=== PATIENT | male | born 1980 | race Caucasian/White ===

== ENCOUNTER 2021-12-20 12:10 | Emergency (ER) | payer BC ==
[~2021-12-20] VITALS: Ht 185.4 cm; Wt 136.4 kg
[2021-12-20 12:39] VITALS: BP 135/88
[2021-12-20] MEDS ORDERED: dexamethasone sod phosphate 10mg/ml inj IM STA (13:01)
[2021-12-20] MEDS ORDERED: CIPR7.5D RIGHT EAR (13:07)
[2021-12-20] MEDS ORDERED: HYDR-3965 PO (13:07)
[2021-12-20] MEDS ORDERED: NAPR-56 PO (13:07)
[2021-12-20] MEDS ORDERED: LEVO-65 PO (13:07)
== END 2021-12-20 13:29 | disposition home or self-care (01) ==
LOC: ER 12:10
DX: H66.92 Otitis media, unspecified, left ear (principal); H92.02 Otalgia, left ear; R50.9 Fever, unspecified; Z79.2 Long term (current) use of antibiotics; Z79.899 Other long term (current) drug therapy
CPT/HCPCS: 96372; 99283; J1100

== ENCOUNTER 2022-05-01 08:54 | Outpatient (CLI) | payer BC ==
[~2022-05-01 08:54] MED LIST: CIPR7.5D RIGHT EAR
[2022-05-01 09:31] LABS: BASOPHILS # (AUTO) 0.1 X10'3 (0-0.2); BASOPHILS % (AUTO) 0.8 % (0-1); EOSINOPHILS # (AUTO) 0.3 X10'3 (0-0.9); EOSINOPHILS % (AUTO) 2.5 % (0-6); HEMATOCRIT 44.5 % (42.0-52.0); HEMOGLOBIN 15.3 g/dl (14.0-17.9); LYMPHOCYTES # (AUTO) 2.7 X10'3 (1.1-4.8); LYMPHOCYTES % (AUTO) 27.3 % (21-51); MEAN CORPUSCULAR HEMOGLOBIN 27.9 PG (27.0-31.0); MEAN CORPUSCULAR HGB CONC 34.5 g/dL (33.0-36.5); MEAN CORPUSCULAR VOLUME 80.9 FL (78-98); MEAN PLATELET VOLUME 8.3 FL (7.4-10.4); MONOCYTES # (AUTO) 0.7 X10'3 (0-0.9); MONOCYTES % (AUTO) 7.1 % (2-12); NEUTROPHILS # (AUTO) 6.3 X10'3 (1.8-7.7); NEUTROPHILS % (AUTO) 62.3 % (42-75); PLATELET COUNT 237 X10'3 (140-440); RED CELL DISTRIBUTION WIDTH 13.4 % (11.5-14.5); WHITE BLOOD COUNT 10.1 X10'3 (4.5-11.0)
[2022-05-01 09:56] LABS: HEMOGLOBIN A1C 5.9 % (4.5-6.2)
[2022-05-01 10:08] LABS: ALANINE AMINOTRANSFERASE 78 U/L (12-78); ALBUMIN 3.9 G/DL (3.4-5.0); ALBUMIN/GLOBULIN RATIO 1.1 (1.1-1.5); ALKALINE PHOSPHATASE 75 IU/L (46-116); ANION GAP 9 (8-16); ASPARTATE AMINO TRANSFERASE 44 U/L (10-37); BILIRUBIN,TOTAL 0.3 MG/DL (0.1-1.0); BLOOD UREA NITROGEN 17 MG/DL (7-18); BUN/CREATININE RATIO 19.5 (5.4-32.0); CALCIUM 9.3 MG/DL (8.5-10.1); CHLORIDE 105 MMOL/L (99-107); CHOLESTEROL 149 MG/DL (0-200); CREATININE 0.87 MG/DL (0.60-1.10); GLUCOSE 103 MG/DL (70-104); HDL CHOLESTEROL 49 MG/DL (35-60); LDL CHOLESTEROL 91 MG/DL (50-100); SODIUM 138 MMOL/L (135-145); TOTAL CARBON DIOXIDE 24.2 MMOL/L (24-32); TOTAL PROTEIN 7.4 G/DL (6.4-8.2); TRIGLYCERIDES 87 MG/DL (20-135); eGFR > 90 ML/MIN
[2022-05-02 11:17] LABS: INSULIN 34.6 uIU/mL (2.6-24.9); THIIODOTHRONINE, FREE, SERUM 3.7 pg/mL (2.0-4.4); THYROID PEROXIDASE AB <9 IU/mL (0-34)
== END 2022-05-01 23:59 | disposition home or self-care (01) ==
LOC: LAB 08:54
PROVIDERS: ATTEND Nurse Practitioner Primary Care
DX: E11.9 Type 2 diabetes mellitus without complications (principal); E06.9 Thyroiditis, unspecified; R68.89 Other general symptoms and signs; R79.89 Other specified abnormal findings of blood chemistry; E78.5 Hyperlipidemia, unspecified; R86.1 Abnormal level of hormones in specimens from male genital organs
CPT/HCPCS: 36415; 80053; 80061; 83036; 83525; 84402; 84403; 84439; 84443; 84481; 85025; 86376

== ENCOUNTER 2022-06-08 10:22 | Emergency (ER) | payer OTHER ==
[~2022-06-08] VITALS: Ht 185.4 cm; Wt 143.2 kg
[2022-06-08 10:33] VITALS: BP 139/86
== END 2022-06-08 10:58 | disposition home or self-care (01) ==
LOC: ER 10:22
DX: S61.201A Unspecified open wound of left index finger without damage to nail, initial encounter (principal); W46.0XXA Contact with hypodermic needle, initial encounter; Y93.89 Activity, other specified; Y92.89 Other specified places as the place of occurrence of the external cause; Y99.8 Other external cause status
CPT/HCPCS: 99281

== ENCOUNTER 2024-01-03 07:14 | Outpatient (CLI) | payer BC, OTHER ==
[2024-01-03 07:40] LABS: BILIRUBIN,URINE NEGATIVE (Neg); CLARITY,URINE CLEAR (Clear); COLOR,URINE YELLOW (Yellow); GLUCOSE, URINE NEGATIVE (Neg); KETONES,URINE NEGATIVE (Neg); LEUKOCYTE ESTERASE ,URINE NEGATIVE (Neg); NITRITES, URINE NEGATIVE (Neg); OCCULT BLOOD,URINE TRACE-INTACT (Neg); PROTEIN,URINE NEGATIVE (Neg); UROBILINOGEN,URINE 0.2 E.U/dL (0.2-1.0)
[2024-01-03 07:47] LABS: BASOPHILS # (AUTO) 0.1 X10'3 (0-0.2); BASOPHILS % (AUTO) 0.9 % (0-1); EOSINOPHILS # (AUTO) 0.3 X10'3 (0-0.9); HEMATOCRIT 45.8 % (42.0-52.0); HEMOGLOBIN 15.8 g/dl (14.0-17.9); LYMPHOCYTES # (AUTO) 2.3 X10'3 (1.1-4.8); LYMPHOCYTES % (AUTO) 23.5 % (21-51); MEAN CORPUSCULAR HEMOGLOBIN 28.5 PG (27.0-31.0); MEAN CORPUSCULAR HGB CONC 34.4 g/dL (33.0-36.5); MEAN CORPUSCULAR VOLUME 82.8 FL (78-98); MEAN PLATELET VOLUME 8.5 FL (7.4-10.4); MONOCYTES # (AUTO) 0.8 X10'3 (0-0.9); MONOCYTES % (AUTO) 7.8 % (2-12); NEUTROPHILS # (AUTO) 6.4 X10'3 (1.8-7.7); NEUTROPHILS % (AUTO) 64.8 % (42-75); PLATELET COUNT 243 X10'3 (140-440); RED BLOOD COUNT 5.54 X10'6 (4.70-6.10); RED CELL DISTRIBUTION WIDTH 13.4 % (11.5-14.5); UA COLLECTION TYPE VOIDED; WHITE BLOOD COUNT 9.9 X10'3 (4.5-11.0)
[2024-01-03 07:49] LABS: BACTERIA,URINE NONE SEEN /HPF (Neg); WBC,URINE NONE SEEN /HPF (0-4)
[2024-01-03 07:50] LABS: MUCUS STRANDS NONE SEEN /LPF (Neg); SQUAMOUS EPITHELIAL CELL,UR FEW /LPF (FEW)
[2024-01-03 08:19] LABS: HEMOGLOBIN A1C 5.6 % (4.5-6.2)
[2024-01-03 08:21] LABS: ALANINE AMINOTRANSFERASE 45 U/L (12-78); ALBUMIN 3.8 G/DL (3.4-5.0); ALBUMIN/GLOBULIN RATIO 1.1 (1.1-1.5); ALKALINE PHOSPHATASE 63 IU/L (46-116); ANION GAP 10 (8-16); ASPARTATE AMINO TRANSFERASE 23 U/L (10-37); BILIRUBIN,TOTAL 0.4 MG/DL (0.1-1.0); BLOOD UREA NITROGEN 18 MG/DL (7-18); BUN/CREATININE RATIO 17.6 (10.0-20.0); CALCIUM 8.9 MG/DL (8.5-10.1); CHLORIDE 105 MMOL/L (99-107); CREATININE 1.02 MG/DL (0.60-1.10); GLUCOSE 99 MG/DL (70-104); POTASSIUM 4.1 MMOL/L (3.5-5.1); SODIUM 140 MMOL/L (135-145); THYROID STIMULATING HORMONE 2.94 ulU/ml (0.34-4.50); TOTAL CARBON DIOXIDE 25.3 MMOL/L (24-32); TOTAL PROTEIN 7.4 G/DL (6.4-8.2); eGFR 80 ML/MIN
[2024-01-04 08:15] LABS: ESTRADIOL 25.3 pg/mL (7.6-42.6); FSH, SERUM 1.8 mIU/mL (1.5-12.4); LUTEINIZING HORMONE 3.3 mIU/mL (1.7-8.6); TESTOSTERONE, SERUM 200 ng/dL (264-916); THYROXINE (T4) 7.3 ug/dL (4.5-12.0)
== END 2024-01-03 23:59 | disposition home or self-care (01) ==
LOC: RAD 07:14
PROVIDERS: ATTEND Nurse Practitioner Family
DX: Z00.01 Encounter for general adult medical examination with abnormal findings (principal); R61 Generalized hyperhidrosis; F52.0 Hypoactive sexual desire disorder; F33.9 Major depressive disorder, recurrent, unspecified
CPT/HCPCS: 36415; 80053; 81001; 82670; 83001; 83002; 83036; 84402; 84403; 84436; 84443; 85025

== ENCOUNTER 2024-02-20 10:55 | Outpatient (CLI) | payer BC ==
[2024-02-22 05:21] LABS: TESTOSTERONE, SERUM 251 ng/dL (264-916)
== END 2024-02-20 23:59 | disposition home or self-care (01) ==
LOC: LAB 10:55
PROVIDERS: ATTEND Nurse Practitioner Family
DX: R79.89 Other specified abnormal findings of blood chemistry (principal)
CPT/HCPCS: 36415; 84402; 84403

== ENCOUNTER 2025-03-16 16:50 | Emergency (ER) | payer BC ==
[~2025-03-16] VITALS: Ht 185.4 cm; Wt 155.0 kg
[2025-03-16 16:57] VITALS: BP 137/93; PULSE 101; O2SAT 97
--- NOTE | 2025-03-16 17:33 | Physician Documentation ---
History of Present Illness ~ Chief Complaint: Ear Pain Stated Complaint: EAR INFECTIONS Time Seen by MD: 16:59 Primary Medical Doctor: LORETO PATEL [facility] This is a 44-year-old male who presents with three days of progressively worsening bilateral ear pain with subjective fever, patient reports history of recurrent ear infections. Patient reports no other acute symptoms or concerns. Medication Reconciliation Allergies: Coded Allergies: No Known Allergies (Unverified , 12/20/21) Scheduled Amox Tr/Potassium Clavulanate (Augmentin 875-125 Tablet), 1 TAB PO Q12H Ciprofloxacin HCl/Dexameth (Ciprodex Otic Suspension), 2 DROP RIGHT EAR QID Ciprofloxacin HCl/Dexameth (Ciproflox-Dexameth Otic Susp), 4 DROP EACH EAR BID Past Medical History Past Medical History: *ENT* (Recurrent ear infections) Review of Systems ROS As stated above in the HPI, otherwise all systems are reviewed and negative. Physical Exam Vital Signs: Temperature: 100.3, Source: Temporal, Heart Rate: 101, Respiratory Rate: 18, BP: 137/93, Pulse Oximetry: 97, Weight: 155.000 Oxygen Flow Rate: 0 Physical Exam VITALS: Reviewed and as above. GENERAL: Alert, nontoxic appearing, no apparent distress. HEENT: Bilateral auditory canals erythematous, tender, swollen, right tympanic membrane erythematous bulging, left tympanic membrane erythematous poorly visualized due to auditory canal swelling, no facial swelling, no postauricular swelling or erythema RESPIRATORY: No increased work of breathing, no respiratory distress, speaking in full clear sentences Progress Results/Orders Results/Orders Completed Orders - CAREY GILBERT [employer] Amox Tr/Potassium Clavulanate (Augmentin (03/16/25 17:35) Cipro 0.3%/Dexameth 0.1% Otic (Ciproflox (03/16/25 17:35) Ketorolac Trometh 15mg/Ml Vial (Toradol (03/16/25 17:40) Medications Received in ER Medications (Trade) Dose Ordered Sig/Paige Route PRN Reason Start Time Stop Time Status Last Admin Dose Admin (Augmentin 875-125mg tablet) 1 tab ONCE ONCE PO 03/16/25 17:35 03/16/25 17:36 DC 03/16/25 17:43 1 TAB (CIPROFLOX-DEXAMETH OTIC SUSP 10ml bottle) 4 drp ONCE ONCE EACH EAR 03/16/25 17:35 03/16/25 17:38 DC 03/16/25 17:44 4 DRP (Toradol injection) 15 mg ONCE ONCE IM 03/16/25 17:40 03/16/25 17:41 DC 03/16/25 17:46 15 MG Vital Signs 03/16/25 03/16/25 03/16/25 16:57 17:46 17:49 Temp 100.3 100.3 Pulse 101 Resp 18 16 B/P (MAP) 137/93 Pulse Ox 97 O2 Flow Rate 0 Medical Decision Making Additional information obtaine: N/A Findings This 44-year-old male presented with three days of progressively worsening bilateral ear pain, physical exam significant for bilateral auditory canal erythema and swelling consistent with otitis externa, additionally right TM is erythematous and bulging consistent with otitis media. Patient is otherwise well-appearing and it is reassuring patient reported no other acute symptoms or concerns. Patient will be medicated for pain and discharged on course of otic and oral antibiotics. Patient provided careful return to care precautions follow up instructions, and home care instructions which he verbalized understanding of. Ear Diff. Dx: Considerations: Include: Abrasion, Cerumen impaction, Foreign body, Otitis externa, Barotrauma, Otitis media, Perforation, Referred pain- dental, Referred pain-pharyngitis, Referred pain-sinusitis, Referred pain-TMJ syn., Tympanic Membrane Injury Eye Diff. Dx: Considerations: Unlikely: Chalazoin, Conjuctivits-allergic, Conjuctivitis-bacterial, Conjuctivits-chlamydial, Conjuctivitis-viral, Corneal abrasion, Corneal laceration, Corneal ulceration, Foreign body-conjuctiva, Foreign body-corneal, Foreign body-intraocular, Foreign body-lid, Glaucoma, Globe rupture, Hordeolum, Iritis, Orbital cellulitis, Periobital cellulitis, Retinal artery occulsion, Retinal vein occlusion, Rust ring, Subconjunctival hem, Ultraviolet keratitis, Uveitis, Vitreous hemorrhage, Other Nose Diff. Dx: Considerations: Unlikely: Abrasion, Anterior nasal bleed, Avulsion, Contusion, Coagulopathy, Fracture-nasal bone, Fracture-septum, Hypertension, Laceration, Other, Posterior nasal bleed, Retained foreign body, Septal hematoma Tooth Diff. Dx: Considerations: Unlikely: Alveolar fracture, Aveolar osteitis, ANUG, Facial cellulitis, Periapical abscess, Periodontal abscess, Post- extraction bleeding, Pulpitis, Trigeminal neuralgia, Tooth-avulsion, Tooth- eruption, Tooth-fracture, Tooth-subluxation, Other Throat Diff Dx: Considerations: Unlikely: AIDS, Epiglottitis, Esophageal candidiasis, Hand foot mouth disease, Herpangina, Herpetic stomatitis, Herpes simplex, Infection mononucleosis, Immunodeficiency, Blade's angina, Peritonsillar abscess, Peritonsillar cellulitis, Pharyngitis-diphtheria, Pharyngitis-strepococcal, Pharyngitis-viral, Thrush, URI, Other Departure Time of Disposition: 17:31 Disposition: HOME / SELF CARE / HOMELESS Impression: Primary Impression: Otitis media Qualified Codes: H66.90 - Otitis media, unspecified, unspecified ear Additional Impression: Otitis externa Qualified Codes: H60.503 - Unspecified acute noninfective otitis externa, bilateral Discharge Instructions: Otitis Externa, Otitis Media, Adult Additional Instructions: Please take the antibiotics as prescribed, you may use ibuprofen and or Tylenol as needed for pain and fever. Please follow up with your primary care provider in the next few days. Please return to the emergency department for any new or worsening concerning symptoms. Referrals: NO PRIMARY CARE PROVIDER (PCP) Prescriptions Ciprofloxacin HCl/Dexameth (Ciproflox-Dexameth Otic Susp) 0.3 %-0.1 % Drops.susp 4 DROP EACH EAR BID for 10 Days, #1 BOTTLE Prov: CAREY GILBERT 03/16/25 Amox Tr/Potassium Clavulanate (Augmentin 875-125 Tablet) 1 Each Tablet 1 TAB PO Q12H for 7 Days, #14 TAB Prov: CAREY GILBERT 03/16/25 Education Educated: Patient Educated regarding: diagnosis, treatment, prognosis, need for follow up Signature Scribe Signature: No Scribe Attestation: The note accurately reflects work and decisions made by me.RICHARD Barker 03/16/25 21:09 CAREY GILBERT Mar 16, 2025 17:33
[2025-03-16] MEDS ORDERED: AMOX-117 PO (17:35)
[2025-03-16] MEDS ORDERED: CIPR7.5D7 EACH EAR (17:35)
[2025-03-16] MEDS: amox tr/potassium clavulanate 875/125mg TAB PO ONE (17:43)
[2025-03-16] MEDS: CIPROFLOXACIN HCL/DEXAMETH 7.5 ML DROPS.SUSP EACH EAR ONE (17:44)
[2025-03-16 17:46] VITALS: RESP 16
[2025-03-16] MEDS: ketorolac trometh 15mg/ml vial 15 MG/ML ML IM ONE (17:46)
[2025-03-16 17:49] VITALS: TEMP 100.3
== END 2025-03-16 17:50 | disposition home or self-care (01) ==
LOC: ER 16:50
DX: H60.93 Unspecified otitis externa, bilateral (principal); H66.93 Otitis media, unspecified, bilateral
CPT/HCPCS: 96372; 99283; J1885